=== PATIENT | female | born 1945 | race Caucasian/White ===

== ENCOUNTER 2017-10-17 18:38 | Inpatient (IN) | payer OTHER ==
[~2017-10-17] VITALS: Ht 157.5 cm; Wt 87.1 kg
--- NOTE | ~2017-10-17 | 2DMMODE ---
[facility] [address] [place] [address] 2 D/M-MODE ECHOCARDIOGRAM Name: PITER PECAE Room #: 418-P [facility] IN .R.#: [id number] Admission: 10/17/17 Attend Phys: Kraig Jones MD Discharge: Date of : 41 Date of Service: 10/18/17 1101 Report #: [id number] THIS REPORT FOR: //name// APPROVED REPORT Study performed: 10/18/2017 09:48:37 EXAM: Comprehensive 2D, Doppler, and color-flow Echocardiogram Patient Location: Echo lab Room #: [facility] Status: routine BSA: 1.88 HR: 83 bpm BP: 135/64 mmHg Other Information Study Quality: Fair Indications COPD Diabetes Murmur Dyspnea 2D Dimensions RVDd: 34.72 mm LVEF(%): 54.29 (>50%) IVSd: 10.72 (7-11mm) LVOT Diam: 20.26 (18-24mm) LVDd: 45.72 mm PWd: 11.43 (7-11mm) Ascending Ao: 30.05 (22-36mm) LVDs: 32.92 (25-40mm) Aortic Root: 30.06 mm IVC: 21.00 mm Calhoun's LVEF: 54.29 % Volumes Left Atrial Volume (Systole) Single Plane 4CH: 105.44 mL Single Plane 2CH: 96.11 mL Aortic Valve AoV Peak Gurinder.: 2.78 m/s AO Peak Gr.: 30.88 mmHg LVOT Max P.63 mmHg AO Mean Gr.: 16.58 mmHg LVOT Mean P.37 mmHg AO V2 Mean: 1.90 m/s LVOT Max V: 1.29 m/s AO V2 VTI: 65.24 cm LVOT Mean V: 0.98 m/s JOSE A (VTI): 1.64 cm2 LVOT V1 VTI: 33.14 cm JOSE A Vmax: 1.49 cm2 [facility] [place] [address] 2 D/M-MODE ECHOCARDIOGRAM Name: PITER PEACE Room #: 418-P [facility] IN ..#: [id number] Admission: 10/17/17 Attend Phys: Kraig Jones MD Discharge: Date of : 41 Date of Service: 10/18/17 1101 Report #: [id number] SV (LVOT): 106.81 mL Mitral Valve MV Peak Gr.: 20.50 mmHg MV Mean Gr.: 9.84 mmHg E/A Ratio: 0.9 MV Decel. Time: 302.78 ms MV E Max Gurinder.: 1.80 m/s MV A Gurinder.: 2.08 m/s MV Max Gurinder.: 2.26 m/s MV Mean Gurinder.: 1.52 m/s MV VTI: 596.20 mm MVA VTI: 179.15 mm2 MV PHT: 87.81 ms MVA (PHT): 2.50 cm2 IVRT: 92.27 ms Pulmonary Valve PV Peak Gurinder.: 1.25 m/s PV Peak Gr.: 6.25 mmHg Pulmonary Vein P Vein S: 0.70 m/s P Vein A: 0.35 m/s P Vein D: 0.42 m/s P Vein A Dur.: 115.3 msec P Vein S/D Ratio: 1.67 Tricuspid Valve TR Peak Gurinder.: 3.21 m/s TR Peak Gr.: 41.12 mmHg PA Pressure: 51.00 mmHg Left Ventricle The left ventricle is normal size. There is normal LV segmental wall motion. There is normal left ventricular wall thickness. The left ventricular systolic function is normal. The left ventricular ejection fraction is within the normal range. LVEF is 50-55%. This study is not technically sufficient to allow evaluation of the LV diastolic function. Right Ventricle The right ventricle is normal size. The right ventricular systolic function is normal. Atria Left atrium is dilated. The right atrium size is normal. Aortic Valve Aortic valve is calcified. Trace aortic regurgitation. Calculated [facility] [address] [place] [address] 2 D/M-MODE ECHOCARDIOGRAM Name: PITER PEACE Room #: 418-P [facility] IN M.R.#: [id number] Admission: 10/17/17 Attend Phys: Kraig Jones MD Discharge: Date of : 41 Date of Service: 10/18/17 1101 Report #: [id number] aortic valve area is 1.5 cm2 with maximum pressure gradient of 31 mmHg and mean pressure gradient of 17 mmHg. Mitral Valve Moderately heavy mitral annular calcification Trace to mild mitral regurgitation. Moderate mitral stenosis (Peak gradient 20mm, mean gradient 10mmHg) Tricuspid Valve The tricuspid valve is normal in structure. There is trace to mild tricuspid regurgitation. Estimated PAP 50 mmHg. There is moderate pulmonary hypertension. Pulmonic Valve The pulmonary valve is normal in structure. There is no pulmonic valvular regurgitation. Great Vessels The aortic root is normal in size. IVC is dilated and collapses >50% with inspiration. Pericardium There is no pericardial effusion. <Conclusion> The left ventricular systolic function is normal. There is normal LV segmental wall motion. LVEF 50-55%. Left atrium is dilated. Aortic valve is calcified, mildly stenotic and insufficient. Calculated aortic valve area is 1.5 cm2 with maximum pressure gradient of 31 mmHg and mean pressure gradient of 17 mmHg. Moderately heavy mitral annular calcification. Trace to mild mitral regurgitation. Moderate mitral stenosis (Peak gradient 20mm, mean gradient 10mmHg) There is trace to mild tricuspid regurgitation. Estimated pulmonary artery pressure of 50 mmHg. There is no pericardial effusion. <ELECTRONICALLY SIGNED> By: Galen Trujillo MD, FACC 10/18/171100 00 00 Galen Trujillo MD, FACC /INF
--- NOTE | ~2017-10-17 | EKG ---
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 10/18/17 0802 [id number] Galen Trujillo MD, [facility] /EPI
[~2017-10-17 18:38] MED LIST: AMBEREN PO; ASPIR 8181 MG PO; ATENOLOL 50MG T50 MG PO; CALCIUM 500 +1 EAC6 PO; COLACE100 MG PO; DESYREL50 MG; FISH OIL 1,0001 EAC5 PO; FLEXERIL PO; FLUOCINONI0.05 %/30 TOP; GLUCOPHAGE500 MG; HYDROCODON-ACE1 EAC8 PO; HYDROXYZINE HCL50 MG PO; LIPITOR40 MG PO; LISINOPRIL5 MG PO; MECLIZINE 25 MG25 M1 PO; NITROGLYCERIN1 EAC1 TD; NORCO 5-325 TA1 EACH PO; NORVASC 5 MG TAB5 MG PO; OMEPRAZOLE40 MG PO; PAXIL10 MG PO; PERCOCET 5-3251 EACH PO; PHOSLO667 MG PO; PLAVIX 75 MG TA75 MG PO; TRIAMTERENE-HC1 EAC1 PO; VICODIN 5-5001 EACH PO; VITAMIN D1000 UNI1 PO; ZOFRAN4 MG PO
[2017-10-17 18:47] VITALS: BP 145/66
[2017-10-17 19:13] LABS: HEMATOCRIT 31.7 % (37.0-47.0); HEMOGLOBIN 10.3 gm/dL (12.0-15.0); MCH 31.1 pg (26.0-34.0); MCHC 32.6 g/dL (28.0-37.0); MCV 95.5 fL (80.0-100.0); PLATELET COUNT 211 thou/uL (150-400); RBC 3.32 mil/uL (4.20-5.00); RDW 17.9 % (10.5-14.5); WBC 8.9 thou/uL (4.0-11.0)
[2017-10-17 19:25] LABS: ANION GAP 10 mmol/L (7-16); BUN 25 mg/dL (7-18); CALCIUM 9.1 mg/dL (8.5-10.1); CHLORIDE 103 mmol/L (98-107); CO2 26 mmol/L (21-32); CREATININE 1.3 mg/dL (0.6-1.0); GLUCOSE 141 mg/dL (74-106); POTASSIUM 3.6 mmol/L (3.5-5.1); SODIUM 139 mmol/L (136-145)
[2017-10-17 19:33] LABS: ALBUMIN 3.5 g/dL (3.4-5.0); MAGNESIUM 1.6 mg/dL (1.8-2.4); SGOT 26 U/L (15-37); SGPT 21 U/L (30-65); TOTAL BILIRUBIN 0.4 mg/dL (<0.1-1.0); TOTAL PROTEIN 8.2 g/dL (6.4-8.2); TROPONIN-I < 0.04 ng/mL (<0.06)
[2017-10-17 19:36] LABS: ABSOLUTE NEUTROPHILS 7.3 thou/uL (1.4-8.2)
[2017-10-17 19:36] LABS: URINE BILIRUBIN NEGATIVE (Negative); URINE BLOOD TRACE (Negative); URINE CLARITY CLEAR; URINE COLOR YELLOW; URINE GLUCOSE-RANDOM* NEGATIVE (Negative); URINE KETONES NEGATIVE (Negative); URINE LEUKOCYTES-REFLEX NEGATIVE (Negative); URINE PROTEIN (DIPSTICK) 1+ (Negative)
[2017-10-17 19:37] LABS: ANISOCYTOSIS 1+; OVALOCYTES OCCASIONAL
[2017-10-17 19:38] LABS: URINE NITRITE-REFLEX POSITIVE (Negative)
[2017-10-17 19:46] LABS: BACTERIA-REFLEX >30 Many /HPF (None Seen); CASTS None Seen /LPF (None Seen); CRYSTALS None Seen /LPF (None Seen); SQUAMOUS 4-10 Moderate /LPF (0-3); URINE RBC 3-10 Few /HPF (0-2); URINE WBC-REFLEX 0-5 Rare /HPF (0-5)
[2017-10-17] MEDS ORDERED: AMARYL2 M1 PO (19:48)
[2017-10-17] MEDS ORDERED: SODIUM BICARBO650 M3 PO (19:50)
[2017-10-17 20:34] VITALS: BP 144/63
[2017-10-17 22:00] VITALS: BP 130/55
[2017-10-18 04:30] VITALS: BP 135/64
[2017-10-18 07:12] VITALS: BP 129/54
[2017-10-18 17:38] VITALS: BP 118/63
[2017-10-18 19:55] VITALS: BP 109/78
[2017-10-19 08:00] VITALS: BP 135/47
[2017-10-19 20:00] VITALS: BP 114/48
[2017-10-20 07:40] VITALS: BP 135/70
[2017-10-20 08:20] LABS: HEMATOCRIT 34.2 % (37.0-47.0); HEMOGLOBIN 10.8 gm/dL (12.0-15.0); MCH 30.4 pg (26.0-34.0); MCHC 31.5 g/dL (28.0-37.0); MCV 96.3 fL (80.0-100.0); RBC 3.55 mil/uL (4.20-5.00); RDW 18.3 % (10.5-14.5); WBC 16.2 thou/uL (4.0-11.0)
[2017-10-20 08:28] LABS: CALCIUM 8.7 mg/dL (8.5-10.1); CREATININE 1.8 mg/dL (0.6-1.0); POTASSIUM 3.7 mmol/L (3.5-5.1)
[2017-10-20 20:40] VITALS: BP 115/50
[2017-10-21 07:47] VITALS: BP 115/49; BP 156/69
[2017-10-21 07:54] LABS: HEMATOCRIT 32.7 % (37.0-47.0); HEMOGLOBIN 10.4 gm/dL (12.0-15.0); MCH 30.8 pg (26.0-34.0); MCHC 31.9 g/dL (28.0-37.0); MCV 96.6 fL (80.0-100.0); RBC 3.38 mil/uL (4.20-5.00); RDW 18.3 % (10.5-14.5); WBC 12.9 thou/uL (4.0-11.0)
[2017-10-21 08:04] LABS: CALCIUM 8.8 mg/dL (8.5-10.1); CREATININE 1.6 mg/dL (0.6-1.0); POTASSIUM 3.8 mmol/L (3.5-5.1)
[2017-10-21 19:41] VITALS: BP 122/73
[2017-10-21 23:10] LABS: ADENOVIRUS Negative (Negative); INFLUENZA A Negative (Negative); INFLUENZA B Negative (Negative); METAPNEUMOVIRUS Positive (Negative); PARAINFLUENZA 1 Negative (Negative); PARAINFLUENZA 2 Negative (Negative); PARAINFLUENZA 3 Negative (Negative); RHINOVIRUS Negative (Negative); RSV A Negative (Negative); RSV B Negative (Negative)
[2017-10-22 07:15] VITALS: BP 163/92
[2017-10-22 07:42] LABS: ABSOLUTE NEUTROPHILS 10.5 thou/uL (1.4-8.2); BASOPHILS 0.2 % (0.0-2.0); HEMATOCRIT 33.4 % (37.0-47.0); HEMOGLOBIN 10.5 gm/dL (12.0-15.0); LYMPHOCYTES 7.8 % (24.0-44.0); MCH 30.3 pg (26.0-34.0); MCHC 31.5 g/dL (28.0-37.0); MCV 95.9 fL (80.0-100.0); MONOCYTES 8.6 % (1.0-8.0); PLATELET COUNT 237 thou/uL (150-400); POLYS 83.4 % (36.0-66.0); RBC 3.49 mil/uL (4.20-5.00); RDW 18.1 % (10.5-14.5); WBC 12.6 thou/uL (4.0-11.0)
[2017-10-22 07:50] LABS: CALCIUM 8.6 mg/dL (8.5-10.1); CREATININE 1.4 mg/dL (0.6-1.0); POTASSIUM 4.1 mmol/L (3.5-5.1)
[2017-10-22 19:38] VITALS: BP 126/49
[2017-10-23 07:34] VITALS: BP 105/59
[2017-10-23 09:42] VITALS: BP 150/59
[2017-10-23] MEDS ORDERED: PREDNISONE 10 M10 MG PO (15:01)
[2017-10-23] MEDS ORDERED: AMARYL2 M1 PO (15:01)
[2017-10-23] MEDS ORDERED: NITROGLYCERIN1 EAC1 TD (15:01)
[2017-10-23] MEDS ORDERED: AUGMENTIN 875-1 EACH PO (15:01)
[2017-10-23] MEDS ORDERED: MUCINEX600 MG PO (15:01)
[2017-10-23] MEDS ORDERED: VENTOLIN HFA 1818 GM INH (15:01)
== END 2017-10-23 18:31 | disposition home health service (06) | DRG 177 ==
LOC: ER 18:38 → 4E 19:48 → EROBS 19:48 → 4E 20:54 → SICU 10-18 18:59
PROVIDERS: Emergency Medicine; Family Medicine; Hospitalist; Nurse Practitioner Acute Care
DX: J69.0 Pneumonitis due to inhalation of food and vomit (principal); J96.21 Acute and chronic respiratory failure with hypoxia; J44.1 Chronic obstructive pulmonary disease with (acute) exacerbation; N39.0 Urinary tract infection, site not specified; J44.0 Chronic obstructive pulmonary disease with (acute) lower respiratory infection; N18.3 Chronic kidney disease, stage 3 (moderate); E11.22 Type 2 diabetes mellitus with diabetic chronic kidney disease; K21.9 Gastro-esophageal reflux disease without esophagitis; I25.10 Atherosclerotic heart disease of native coronary artery without angina pectoris; D64.9 Anemia, unspecified; Z96.611 Presence of right artificial shoulder joint; B96.20 Unspecified Escherichia coli [E. coli] as the cause of diseases classified elsewhere; E83.42 Hypomagnesemia; J20.9 Acute bronchitis, unspecified; Z96.653 Presence of artificial knee joint, bilateral; Z85.3 Personal history of malignant neoplasm of breast; Z87.11 Personal history of peptic ulcer disease; Z87.81 Personal history of (healed) traumatic fracture; Z98.1 Arthrodesis status; Z90.11 Acquired absence of right breast and nipple; Z90.49 Acquired absence of other specified parts of digestive tract; Z90.710 Acquired absence of both cervix and uterus; Z79.02 Long term (current) use of antithrombotics/antiplatelets; Z79.82 Long term (current) use of aspirin; Z79.899 Other long term (current) drug therapy; Z88.5 Allergy status to narcotic agent; Z88.8 Allergy status to other drugs, medicaments and biological substances; Z88.6 Allergy status to analgesic agent; Z88.1 Allergy status to other antibiotic agents; Z91.040 Latex allergy status; Z82.49 Family history of ischemic heart disease and other diseases of the circulatory system
CPT/HCPCS: 10084; 15000

== ENCOUNTER 2019-07-23 17:27 | Emergency (ER) | payer OTHER ==
[~2019-07-23] VITALS: Ht 157.5 cm; Wt 81.2 kg
[~2019-07-23 17:27] MED LIST changes: +AMARYL2 M1 PO; +AUGMENTIN 875-1 EACH PO; +MUCINEX600 MG PO; +PREDNISONE 10 M10 MG PO; +SODIUM BICARBO650 M3 PO; +VENTOLIN HFA 1818 GM INH
[2019-07-23] MEDS ORDERED: NORCO 5-325 TA1 EAC1 PO (20:21)
[2019-07-23 20:51] VITALS: BP 147/38
== END 2019-07-23 20:52 | disposition home or self-care (01) ==
LOC: ER 17:27
DX: M25.562 Pain in left knee (principal); Z88.5 Allergy status to narcotic agent; Z88.8 Allergy status to other drugs, medicaments and biological substances; Z88.6 Allergy status to analgesic agent; Z88.1 Allergy status to other antibiotic agents; Z91.040 Latex allergy status; Z96.653 Presence of artificial knee joint, bilateral; Z90.710 Acquired absence of both cervix and uterus

== ENCOUNTER 2020-01-23 07:09 | Emergency (ER) | payer OTHER ==
[~2020-01-23] VITALS: Ht 157.5 cm; Wt 81.2 kg
[~2020-01-23 07:09] MED LIST changes: +NORCO 5-325 TA1 EAC1 PO
[2020-01-23 07:33] LABS: HEMATOCRIT 35.7 % (37.0-47.0); HEMOGLOBIN 11.6 gm/dL (12.0-15.0); MCH 31.9 pg (26.0-34.0); MCHC 32.5 g/dL (28.0-37.0); MCV 98.2 fL (80.0-100.0); PLATELET COUNT 190 thou/uL (150-400); RBC 3.63 mil/uL (4.20-5.00); RDW 14.4 % (10.5-14.5); WBC 17.1 thou/uL (4.0-11.0)
[2020-01-23 07:39] LABS: CALCIUM 9.4 mg/dL (8.5-10.1); CREATININE 1.4 mg/dL (0.6-1.0)
[2020-01-23 08:44] LABS: ABSOLUTE NEUTROPHILS 15.2 thou/uL (1.4-8.2); ANISOCYTOSIS 1+
[2020-01-23 08:50] LABS: URINE BILIRUBIN NEGATIVE (Negative); URINE BLOOD 1+ (Negative); URINE COLOR YELLOW; URINE GLUCOSE-RANDOM* NEGATIVE (Negative); URINE KETONES NEGATIVE (Negative); URINE LEUKOCYTES-REFLEX NEGATIVE (Negative); URINE NITRITE-REFLEX NEGATIVE (Negative); URINE PROTEIN (DIPSTICK) 1+ (Negative); URINE SPECIFIC GRAVITY >= 1.030 (1.005-1.035); URINE UROBILINOGEN 0.2 E.U./dl (0.2-1.0)
[2020-01-23 08:52] LABS: URINE CLARITY SL HAZY
[2020-01-23 08:58] LABS: CASTS None Seen /LPF (None Seen); SQUAMOUS 0-3 Few /LPF (0-3)
[2020-01-23 08:59] LABS: AMORPHOUS URATES Few /LPF (None Seen); BACTERIA-REFLEX 1-9 Few /HPF (None Seen); URINE RBC 0-2 Rare /HPF (0-2); URINE WBC-REFLEX 0-5 Rare /HPF (0-5)
[2020-01-23] MEDS ORDERED: NORCO 5-325 TA1 EAC2 PO (09:33)
[2020-01-23 10:45] VITALS: BP 144/49
== END 2020-01-23 10:45 | disposition home or self-care (01) ==
LOC: ER 07:09
PROVIDERS: Emergency Medicine
DX: M54.5 Low back pain (principal); E11.9 Type 2 diabetes mellitus without complications; N18.3 Chronic kidney disease, stage 3 (moderate); K21.9 Gastro-esophageal reflux disease without esophagitis; I25.10 Atherosclerotic heart disease of native coronary artery without angina pectoris; Z90.710 Acquired absence of both cervix and uterus; Z90.89 Acquired absence of other organs; Z79.899 Other long term (current) drug therapy; Z88.6 Allergy status to analgesic agent; Z79.01 Long term (current) use of anticoagulants; Z88.5 Allergy status to narcotic agent; Z88.1 Allergy status to other antibiotic agents; Z88.8 Allergy status to other drugs, medicaments and biological substances; Z91.040 Latex allergy status; Z91.048 Other nonmedicinal substance allergy status

== ENCOUNTER 2020-01-24 09:31 | Inpatient (IN) | payer OTHER ==
[~2020-01-24] VITALS: Ht 152.4 cm; Wt 83.5 kg
--- NOTE | ~2020-01-24 | O ---
[facility] [place] [address] OPERATIVE REPORT Name: PITER PEACE Room #: 243-P ADM IN M.R.#: [id number] Admission: 01/24/20 Attend Phys: Chris Thompson MD Discharge: Date of : 43 Report #: [id number] THIS REPORT FOR: cc: FAM - Family physician unknown FAM - Family physician unknown Jermaine Coyne MD ~ CC: [facility] unknown Chris Thompson DATE OF SERVICE: 01/26/2020 PREOPERATIVE DIAGNOSIS: Epidural abscess L3 through L5. POSTOPERATIVE DIAGNOSIS: Epidural abscess L3 through L5. OPERATION PERFORMED: Partial L3-L4 laminectomy with evacuation of epidural abscess and sending of cultures along with placement of drain. DARRIN Darling assisted with the surgery. She assisted with exposure, the evacuation of the abscess as well as the closure. OPERATIVE INDICATIONS: The patient is a 74-year-old woman who was unconscious and intubated, hypotensive, on Levophed when I was contacted. She had presented to the Emergency Room the day before her admission with back pain and then the following day, came in obtunded and ended up being admitted. She had had MRI scans of the cervical, thoracic and lumbar spine. On the lumbar MRI, there was an epidural abscess. There was a fluid collection which I felt was consistent with an epidural abscess basically behind the body of L4. I felt that on her initial admission including the fact that she was on Plavix, hypotensive, etc., that she was not stable enough to go to surgery. Two days later, which is now Saturday, I felt that at this point after being cleared by the fire truck driver, I could take her surgery and safely evacuate the abscess. I did discuss this with the patient's daughter who understood very well my concerns, the rationale and the procedure. DESCRIPTION OF PROCEDURE: Following general endotracheal anesthesia, the patient was positioned prone on the Jah table. Lumbar region prepped and draped in standard fashion. LY hose and AV impulse boots were applied for DVT prophylaxis. Microscope was draped. Fluoroscopy was draped and brought into the field. She was already on antibiotics. I made a midline incision over the L4 vertebral body extending from mid L3 to upper L5, dissected down through skin and subcutaneous tissue, reflected the paraspinal muscles. As I reflected into the right side, there was a spontaneous egress of pus, which appeared to emanate from the facet. I brought in the high speed air drill and microscope. I drilled down a generous laminectomy at L4, moved superiorly ____ L3, as I was lifting the bone away from the laminectomy, there was significant pus which kept [facility] [address] [place] [address] OPERATIVE REPORT Name: KOBIPITER Room #: 243-P ADM IN M.R.#: [id number] Admission: 01/24/20 Attend Phys: Chris Thompson MD Discharge: Date of : 43 Report #: [id number]. I did send cultures again and worked diligently and fully decompressed the region. I reached around the sides of the dura. There were some fluids, but the majority of the fluid appeared to be posteriorly located. At this point, I irrigated with antibiotic solution and I also had excellent decompression. I worked diligently with bone wax and bipolar cautery to obtain excellent hemostasis. I placed a drain and then was brought out through a separate stab incision, laying just at the posterior edge of the laminectomy. The muscle was closed in a separate layer, fascia again and separate layer of subcutaneous tissue separately and the skin with skin mateo. I felt the surgery went very well. By: 1625 1739 Jermaine Coyne MD /nt
--- NOTE | ~2020-01-24 | EMS ---
[facility] [address] [place] [address] EMS Patient Care Report Name: PITER PEACE Room #: PRE ER M.R.#: [id number] Admission: Attend Phys: Discharge: Date of : 43 Report #: [id number] THIS REPORT FOR: //name// Report Transmitted: 01/24/2020 09:03 EMS Care Summary [place], [place]/[facility] Incident [id number] @ 01/24/2020 08:48 Incident [id number] [place] [address] Patient PITER PEAEC Female, 74 Years 1945 Patient Address [address] [place] [address] Patient Allergies No known allergies, Patient Medications Hydrocodone, Chief Complaint WEAKNESS/ LETHARGY Disposition Transported No Lights/[place] Dispatch Reason Sick Person Transported To [facility] Narrative UPON ARRIVAL PT SITTING IN RECLINER CONSCIOUS AND ALERT. PT'S DAUGHTER HAD CALLED 911 FOR PT WHEN SHE WOULD NOT ANSWER THE PHONE TO CHECK ON HER. PT CAN ANSWER YES AND NO BUT CAN NOT ANSWER QUESTIONS BEYOND THAT. DAUGHTER STATES PT NORMALLY ABLE TO HAVE A CONVERSATION AND GET AROUND APT ON HER OWN. PT UNABLE TO GET OUT OF CHAIR EVEN WITH ASSISTANCE. PT WAS SEEN IN ER YESTERDAY FOR BACK PAIN AND GIVEN PAIN MEDICATION. PT ALSO HAS A STRONG URINE ODOR. PT LIFTED TO [facility] [address] [place] [address] EMS Patient Care Report Name: PITER PEACE Room #: PRE [facility].#: [id number] Admission: Attend Phys: Discharge: Date of : 43 Report #: [id number] COT AND TRANSPORTED TO [facility]. Initial Vitals @09:14P: 76,R: 24,BP: 121/60,Pain: 4/10,GCS: 14,Glucose: 199,SpO2: 95,Revised Trauma: 12, @09:26P: 68,R: 24,BP: 127/73,GCS: 14,SpO2: 96,Revised Trauma: 12, Assessments @08:56MENTAL:Confused,SKIN:HEENT:Head/Face: No Abnormalities,LUNG SOUNDS:General: No Abnormalities,ABDOMEN:General: No Abnormalities,PELVIS//GI:EXTREMITIES:Left Arm: No Abnormalities,Right Arm: No Abnormalities,Left Leg: No Abnormalities,Right Leg: No Abnormalities,PULSE:NEURO:No Abnormalities, Impression Altered Mental Status Procedures @08:56ALS AssessmentResponse: UnchangedSucceeded@09:103-Lead ECGResponse: UnchangedSucceeded Timeline 08:47,Call Received 08:47,Dispatch Notified 08:48,Dispatched 08:50,En Route 08:52,On Scene 08:55,At Patient 08:56,ALS Assessment,Response: UnchangedSucceeded, 09:10,3-Lead ECG,Response: UnchangedSucceeded, 09:14,BP: 121/60 M,PULSE: 76,RR: 24 R,SPO2: 95 Ox,ETCO2: ,B,PAIN: 4,GCS: 14, 09:16,Depart Scene 09:26,BP: 127/73 M,PULSE: 68,RR: 24 R,SPO2: 96 Ox,ETCO2: ,BG: ,PAIN: ,GCS: 14, 09:27,At Destination 09:46,Call Closed Disclaimer v1.1 Copyright 2020 [employer] This EMS Care Summary contains data elements from the applicable legal record (which may be displayed differently). It is designed to provide pertinent information for the following purposes: continuity of care, clinical quality, and state data reporting. The complete legal record is available to ED staff and administrators of the receiving hospital in [employer]'s Patient Tracker. All data is provided "as is."
--- NOTE | ~2020-01-24 | HC ---
[facility] [place] [address] CONSULTATION Name: PITER PEACE Room #: 238-P ADM IN M.R.#: [id number] Admission: 01/24/20 Attend Phys: Chris Thompson MD Discharge: Date of : 43 Report #: [id number] THIS REPORT FOR: cc: FAM - Family physician unknown FAM - Family physician unknown Jermaine Coyne MD ~ CC: [facility] unknown Chris Thompson DATE OF SERVICE: 01/24/2020 TIME: 9:30 p.m. REASON FOR CONSULTATION: Epidural abscess. HISTORY OF PRESENT ILLNESS: The patient is a 74-year-old woman who actually presented to the Emergency Room yesterday with complaints of back pain. She was evaluated and no definite etiology was found and she was discharged. She returned today confused with again severe back pain and she was febrile. She was able to say yes or no for simple questions, but was not oriented to the previous day when she was able to give a history. She did describe problems with chronic back pain for which she takes Alkol. She normally uses a walker to ambulate. PAST MEDICAL HISTORY: Includes left knee replacement, right knee replacement, right breast mastectomy for carcinoma, GERD, peptic ulcer disease, coronary artery disease, right shoulder replacement, left femur fracture requiring surgery, appendectomy, hysterectomy, tonsillectomy, diabetes type 2, history of TIA, right carpal tunnel release and cervical fusion. MEDICATIONS: Available on the chart and are noncontributory except for the use of Plavix 75 mg p.o. every day. ALLERGIES: She has a long list of allergies which are also again on the chart and are available. SOCIAL HISTORY: Reports no alcohol use, no tobacco use. PHYSICAL EXAMINATION: GENERAL: At this time, she is supine in bed. The head of bed is elevated about 20 degrees. She is intubated on propofol. HEENT: Her pupils react sluggishly. NEUROLOGIC: Gag reflex is intact. She did pick some chewing motions during the examination. There was no response in upper and lower extremities to painful stimuli. [facility] [address] [place] [address] CONSULTATION Name: KOBIPITER Roberts Room #: 238-P ADM IN M.R.#: [id number] Admission: 01/24/20 Attend Phys: Chris Thompson MD Discharge: Date of : 43 Report #: [id number] IMPRESSION AND PLAN: She was extensively evaluated in the Emergency Room and as well MRI scans were performed as of the cervical, thoracic and lumbar region. She does have a disk herniation at T1-T2, which is associated with mild stenosis at that level. However, the principal problem is at L3, L4, L5 where there is evidence of an epidural abscess with anterior and posterior components narrowing the spinal canal behind the body of L4. It is about 4 mm. Her Emergency Room and hospital course was noteworthy for hypotension and cardiac dysrhythmia while in the MRI scanner for which she was placed on Levophed and she is currently on Levophed. Currently, her temperature is 102.4. Levophed was recently increased slightly. Her blood pressure is in the mid 80s systolic and heart rate 71. I have a number of thoughts about her ideally. She could be taken to surgery and having the abscess evacuated; however, being on Plavix complicates that significantly and additionally her current condition would preclude operative intervention. She is on antibiotics. Consults were called. So at this point I am going to follow her. I do understand that the blood culture result has come back as gram-positive cocci. I appreciate you asking me to see her in consultation. By: 35 45 eJrmaine Coyne MD /nt
[~2020-01-24 09:31] MED LIST changes: +NORCO 5-325 TA1 EAC2 PO
[2020-01-24 09:32] VITALS: BP 129/51
[2020-01-24 11:23] LABS: BE(vivo) -2.9 mmol/L (-2 to +3); HCO3 20.7 mmol/L (22.0-26.0); PCO2 31.8 mmHg (35.0-45.0); PO2 121.1 mmHg (80.0-100.0); pH 7.431 (7.360-7.450); sO2 98.5 % (92.0-98.0)
[2020-01-24 11:34] LABS: RBC 3.24 mil/uL (4.20-5.00); RDW 14.6 % (10.5-14.5)
[2020-01-24 11:37] LABS: HEMATOCRIT 31.9 % (37.0-47.0); HEMOGLOBIN 10.4 gm/dL (12.0-15.0); MCH 32.1 pg (26.0-34.0); MCHC 32.6 g/dL (28.0-37.0); MCV 98.4 fL (80.0-100.0); PLATELET COUNT 155 thou/uL (150-400); WBC 19.4 thou/uL (4.0-11.0)
--- NOTE | 2020-01-24 11:40 | NUR ---
ETOMIDATE IN @1142 TO RIGHT A/C SUCC IN @ 1142 RT AT BEDSIDE ASSISTING AIRWAY WITH BVM ET TUBE PLACED BY DR. CLEMENTS- SIZE 7.0; 22 AT THE LIP; +COLOR CHANGE
[2020-01-24 11:46] LABS: URINE BILIRUBIN NEGATIVE (Negative); URINE BLOOD 3+ (Negative); URINE CLARITY CLOUDY; URINE COLOR YELLOW; URINE GLUCOSE-RANDOM* NEGATIVE (Negative); URINE KETONES NEGATIVE (Negative); URINE LEUKOCYTES-REFLEX NEGATIVE (Negative); URINE NITRITE-REFLEX NEGATIVE (Negative); URINE PROTEIN (DIPSTICK) 2+ (Negative); URINE SPECIFIC GRAVITY 1.025 (1.005-1.035); URINE UROBILINOGEN 0.2 E.U./dl (0.2-1.0)
[2020-01-24 12:47] LABS: CASTS None Seen /LPF (None Seen); SQUAMOUS 0-3 Few /LPF (0-3); URINE WBC-REFLEX 0-5 Rare /HPF (0-5)
[2020-01-24 12:49] LABS: AMORPHOUS URATES Moderate /LPF (None Seen); BACTERIA-REFLEX 1-9 Few /HPF (None Seen); URINE RBC 0-2 Rare /HPF (0-2)
[2020-01-24 13:26] LABS: CALCIUM 7.6 mg/dL (8.5-10.1)
[2020-01-24 13:27] LABS: POTASSIUM 4.8 mmol/L (3.5-5.1)
[2020-01-24 13:31] LABS: ALBUMIN 2.5 g/dL (3.4-5.0); DIRECT BILIRUBIN 0.2 mg/dL (<0.1-0.2); TOTAL BILIRUBIN 0.9 mg/dL (0.2-1.0); TOTAL PROTEIN 6.4 g/dL (6.4-8.2)
[2020-01-24 14:10] LABS: BE(vivo) -6.2 mmol/L (-2 to +3); HCO3 17.3 mmol/L (22.0-26.0); PCO2 28.9 mmHg (35.0-45.0); PO2 145.1 mmHg (80.0-100.0); pH 7.396 (7.360-7.450); sO2 98.9 % (92.0-98.0)
[2020-01-24 14:14] LABS: ABSOLUTE NEUTROPHILS 16.9 thou/uL (1.4-8.2)
[2020-01-24 17:51] VITALS: BP 84/39
[2020-01-24 19:48] VITALS: BP 128/72
[2020-01-24 23:06] LABS: CALCIUM 7.2 mg/dL (8.5-10.1); CREATININE 2.7 mg/dL (0.6-1.0)
[2020-01-24 23:07] LABS: APTT 40.8 Seconds (24.5-32.8); INR 1.3; PROTIME 13.5 Seconds (9.3-11.4)
[2020-01-24 23:14] LABS: POTASSIUM 3.7 mmol/L (3.5-5.1)
[2020-01-25] VITALS (82 sets, daily range): BP systolic 72–163; BP diastolic 30–96
--- NOTE | 2020-01-25 03:18 | NUR ---
ASSUMED CARE OF PATIENT AT FROM ER. PATIENT ON LEVO, PROPOFOL, FLUIDS. MINIMALLY RESPONSIVE. DR GARCES TO BEDSIDE. DISCUSSED PATIENT STATUS. REVIEWED ORDERS. PATIENT REMAINS INTUBATED AND SEDATED WITH GOAL TO KEEP MAP ABOVE 65. NOT PROGRESSING TOWARDS POC GOALS AT THIS TIME.
[2020-01-25 04:50] LABS: BE(vivo) -10.3 mmol/L (-2 to +3); HCO3 15.6 mmol/L (22.0-26.0); PCO2 34.7 mmHg (35.0-45.0); PO2 197.5 mmHg (80.0-100.0); sO2 99.2 % (92.0-98.0)
[2020-01-25 04:51] LABS: pH 7.271 (7.360-7.450)
[2020-01-25 06:15] LABS: CALCIUM 7.1 mg/dL (8.5-10.1); POTASSIUM 4.2 mmol/L (3.5-5.1)
--- NOTE | 2020-01-25 09:08 | EKG ---
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 : 1945 Requested By: Nolan Riddle Order Number: [id number] MD: Galen Trujillo Measurements Intervals [place] Rate: 68 P: 49 NM: 137 QRS: 65 QRSD: 104 T: 56 QT: 427 QTc: 455 Interpretive Statements Sinus rhythm Abnormal R-wave progression, early transition Minimal ST depression, anterolateral leads Compared to ECG 10/17/2017 18:49:32 ST (T wave) deviation now present Electronically Signed On 01-25-2020 9:07:52 CDT by Galen Trujillo [email or web address] <ELECTRONICALLY SIGNED> By: Galen Trujillo MD, [facility] 01/25/20906 9 9 Galen Trujillo MD, [facility] /EPI
--- NOTE | 2020-01-25 10:25 | NUR ---
Nutrition: NPO day 1. REC initiation of Vital HP to reach 40 mL/hr goal.
--- NOTE | 2020-01-25 15:13 | NUR ---
cm tried to call pt daughter akira, , unable to leave message rt no mailbox set up. pt intubated on vent. will cont following as needed for dc needs.
--- NOTE | 2020-01-25 15:16 | NUR ---
WOUND CONSULT; ASSESSMENT WAS COMPLETED VIA PICTURE AND THE RN'S REPORT DUE TO COVID RESTRICTIONS. THE RIGHT HIP SEEMS CONSISTANT WITH THE PATIENT SCATCHING AT SOME POINT. BILATERAL BUTTOCKS HAVE PALE PINK ESCORIATIONS CONSISTANT WITH INCONTINENCE RELATED DERMATITIS. DRY, FRAGIALLY HEALED. RECOMMENDATIONS; 1-BETADINE TO RIGHT HIP, DAILY/PRN 2-BARRIER CREAM TO BILATERAL BUTTOCKS BID/PRN DISCUSSED WITH RN
--- NOTE | 2020-01-25 17:54 | NUR ---
INSULIN GTT INITIATED AT 1200. WEANING LEVOPHED. DOWN TO 2 MCG. 50% FIO2. PEEP 5. DR. BROWNING AT BEDSIDE IN AFTERNOON. PLANNING TO HAVE PATIENT GO TO ER ON 01/25 1300 FOR REMOVAL OF ABCESS. SPOKE NE DEL CID DAUGHTER.
[2020-01-26] VITALS (85 sets, daily range): BP systolic 72–151; BP diastolic 34–80
[2020-01-26 00:20] LABS: CALCIUM 7.2 mg/dL (8.5-10.1); CREATININE 2.6 mg/dL (0.6-1.0); POTASSIUM 3.3 mmol/L (3.5-5.1)
[2020-01-26 03:07] LABS: BE(vivo) -7.1 mmol/L (-2 to +3); HCO3 18.3 mmol/L (22.0-26.0); PCO2 36.3 mmHg (35.0-45.0); PO2 131.7 mmHg (80.0-100.0); sO2 98.4 % (92.0-98.0)
[2020-01-26 06:58] LABS: HEMATOCRIT 29.3 % (37.0-47.0); HEMOGLOBIN 9.7 gm/dL (12.0-15.0); MCH 32.4 pg (26.0-34.0); MCHC 33.1 g/dL (28.0-37.0); MCV 97.8 fL (80.0-100.0); RBC 2.99 mil/uL (4.20-5.00); RDW 15.1 % (10.5-14.5); WBC 16.7 thou/uL (4.0-11.0)
--- NOTE | 2020-01-26 07:25 | NUR ---
ASSUMED CARE 1900. PT SEDATED. DOES NOT FOLLOW COMMANDS. WITHDRAWS TO PAINFUL STIMULI, PUPILS REACTIVE. NO APPARENT PAIN. PT SATS 100% ON ON 40% FIO2, PEEP OF 5, RATE 12, TV 400. NO BOWEL MOVEMENT LAST NIGHT. FAMILY TO BE EDUCATED MORE ABOUT THE RISKS OF THE PENDING PRECEDURE BEFORE CONSENT AUTHORIZATION. OTHERWISE NO EVENTS OVERNIGHT.
[2020-01-26 07:33] LABS: ALBUMIN 1.8 g/dL (3.4-5.0); CALCIUM 7.4 mg/dL (8.5-10.1); CREATININE 2.3 mg/dL (0.6-1.0); POTASSIUM 3.9 mmol/L (3.5-5.1); TOTAL BILIRUBIN 0.4 mg/dL (0.2-1.0); TOTAL PROTEIN 5.9 g/dL (6.4-8.2)
[2020-01-26 10:50] LABS: ABSOLUTE NEUTROPHILS 14.4 thou/uL (1.4-8.2); ANISOCYTOSIS SLIGHT; ATYPICAL LYMPHS 1 %; LARGE PLATELETS OCCASIONAL; METAMYELOCYTES 1 %; POIKILOCYTOSIS SLIGHT
[2020-01-26 10:51] LABS: PLATELET COUNT 100 thou/uL (150-400); PLATELET ESTIMATE SLIGHTLY DECREASED
--- NOTE | 2020-01-26 14:40 | 2DMMODE ---
[facility] [place] [address] 2 D/M-MODE ECHOCARDIOGRAM Name: PITER PEACE Room #: 238-P ADM IN M.R.#: [id number] Admission: 01/24/20 Attend Phys: Chris Thompson MD Discharge: Date of : 43 Report #: [id number] THIS REPORT FOR: cc: FAM - Family physician unknown FAM - Family physician unknown Galen Trujillo MD [facility] ~ APPROVED REPORT Study performed: 01/26/2020 12:31:24 EXAM: Comprehensive 2D, Doppler, and color-flow Echocardiogram Patient Location: ICU Room #: 238 Status: routine BSA: 1.76 HR: 60 bpm BP: 131/60 mmHg Rhythm: NSR Other Information Study Quality: Adequate/on vent Indications Endocarditis. 2D Dimensions RVDd: 45.27 mm IVSd: 13.76 (7-11mm) LVOT Diam: 19.90 (18-24mm) LVDd: 48.06 mm PWd: 9.69 (7-11mm) Ascending Ao: 38.01 (22-36mm) LVDs: 36.22 (25-40mm) Aortic Root: 32.29 mm Volumes Left Atrial Volume (Systole) Single Plane 4CH: 75.33 mL Single Plane 2CH: 129.24 mL LA ESV Index: 59.00 mL/m2 Aortic Valve AoV Peak Gurinder.: 2.05 m/s AO Peak Gr.: 16.74 mmHg LVOT Max P.73 mmHg AO Mean Gr.: 10.51 mmHg AO V2 Mean: 1.57 m/s LVOT Max V: 0.83 m/s AO V2 VTI: 49.23 cm [facility] [address] [place] [address] 2 D/M-MODE ECHOCARDIOGRAM Name: PITER PEACE Room #: 238-P [facility] IN [facility]#: [id number] Admission: 01/24/20 Attend Phys: Chris Thompson MD Discharge: Date of : 43 Report #: [id number] JOSE A Vmax: 1.26 cm2 Mitral Valve MV Decel. Time: 283.27 ms MV PHT: 82.15 ms Pulmonary Valve PV Peak Gurinder.: 0.89 m/s PV Peak Gr.: 3.17 mmHg Tricuspid Valve TR Peak Gurinder.: 3.01 m/s RAP Estimate: 10.00 mmHg TR Peak Gr.: 36.31 mmHg PA Pressure: 46.00 mmHg Left Ventricle The left ventricle is normal size. There is normal LV segmental wall motion. Mild basal septal hypertrophy is present. Left ventricular systolic function is normal. LVEF is 50-55%. This study is not technically sufficient to allow evaluation of the LV diastolic function. Right Ventricle The right ventricle is normal size. The right ventricular systolic function is normal. Atria Left atrium is severely dilated. Right atrium is at the upper limits of normal. Aortic Valve Aortic valve is moderately calcified, trileaflet. Mild aortic regurgitation. Mild to moderate aortic stenosis. JOSE A by continuity equation is 1.3cm2. Mitral Valve Heavily calcified annulus, mobile submital component suspicious for a vegetation. Moderate mitral regurgitation. Moderate mitral stenosis. Mean pressure gradient 9mmHg; Max 23mmHg. Tricuspid Valve The tricuspid valve is normal in structure. Moderate tricuspid regurgitation. Estimated PAP is 45-50mmHg. Pulmonic Valve The pulmonary valve is normal in structure. Mild to moderate pulmonic regurgitation. [facility] [place] [address] 2 D/M-MODE ECHOCARDIOGRAM Name: PITER PEACE Room #: 238-P ADM IN M.R.#: [id number] Admission: 01/24/20 Attend Phys: Chris Thompson MD Discharge: Date of : 41 Report #: [id number] Great Vessels The aortic root is normal in size. The ascending aorta is borderline dilated. IVC is dilated and collapses <50% with inspiration. Pericardium There is no pericardial effusion. Critical Notification Critical Value: Yes <Conclusion> Left ventricular systolic function is normal. There is normal LV segmental wall motion. LVEF is 50-55%. Left atrium is severely dilated. Aortic valve is moderately calcified, trileaflet. Mild aortic regurgitation. Mild to moderate aortic stenosis. JOSE A by continuity equation is 1.3cm2. Heavily calcified annulus, mobile submital component suspicious for a vegetation. Moderate mitral regurgitation. Moderate mitral stenosis. Mean pressure gradient 9mmHg; Max 23mmHg. Moderate tricuspid regurgitation. Estimated pulmonary artery pressure of 45-50mmHg. There is no pericardial effusion. <ELECTRONICALLY SIGNED> By: Galen Trujillo MD, [facility] 01/26/20 1440 39 Galen Trujillo MD, FACC /INF
--- NOTE | 2020-01-26 16:01 | NUR ---
PATIENT IN OR SINCE 1355. 1400 AND 1600 RESTRAINTS NOT DOCUMENTED DUE TO PATIENT BEING OFF OF THE UNIT.
--- NOTE | 2020-01-26 16:30 | NUR ---
PATIENT LEFT ICU POD1 AT 1400 TO OR. REPORT WAS GIVEN TO ANOTHER RN FOR CONTINUATION OF CARE UPON PATIENT RETURN. PATIENT ARRIVED BACK TO ICU AT 1630 INTO ROOM 243. SHE WAS ORIGINALLY IN ROOM 238, COVID TEST WAS NEGATIVE.
--- NOTE | 2020-01-26 16:30 | NUR ---
1630- PATIENT ARRIVED TO UNIT WITH SURGICAL STAFF. SHE WAS PLACED ON PROPOFOL BY SURGERY STAFF. SHE WAS SETTLED INTO BED. MATTY DRAIN INTACT. DRESSING WILL HAVE TO BE CHANGED. NURSE TO CONTINUE TO MONITOR PATIENT STATUS.
--- NOTE | 2020-01-26 17:20 | NUR ---
1720- PATIENT DAUGHTER LET BACK IN THE ROOM. SHE WAS UPDATED ON PATIENT STATUS AND NEED FOR LEVOPHED. NURSE EXPLAINED CLOSE MONITORING OF THE PATIENTS VITAL SIGNS AND OVER ALL STATUS. NURSE UPDATED HER ON THE PLAN OF CARE.
--- NOTE | 2020-01-26 17:30 | NUR ---
1730- SURGEON ROUNDED ON PATIENT. NURSE INFORMED HIM OF PATIENTS TACHYCARDIA AFTER ARRIVAL TO THE ICU. NURSE ALSO INFORMED PHYSICIAN OF PATIENTS DRESSING NOT BEING IN PLACE AND SO A NEW DRESSING WAS PLACED. NURSE INFORMED HIM OF PATIENTS VITAL SIGNS AND BLOOD PRESSURE, REQUIRING THE NEED FOR LEVOPHED. HE EXPRESSED HE UNDERSTOOD.
--- NOTE | 2020-01-26 18:08 | NUR ---
1800- PATIENTS DAUGHTER JUDITH TOOK PATIENTS BELONGINGS HOME. SHE TOOK HER PURSE WITH HER DRIVERS LICENSE, DEBIT CARD, SOCIAL SECURITY CARD, TWO 2 DOLLAR BILLS, KOHLS GIFT CARD, SUNGLASSES, KEYS. SHE ALSO TOOK HOME HER GOWN. WHAT WAS LEFT WAS HER TOP PART OF DENTURES, JUDITH EXPRESSED SHE DOES NOT HAVE A BOTTOM PART DENTURES.
[2020-01-27] VITALS (52 sets, daily range): BP systolic 96–150; BP diastolic 40–83
--- NOTE | 2020-01-27 01:39 | NUR ---
ASSUMED CARE AT 1900. VSS. SEDATION VACATION FROM PROPOFOL AT 10MCG. PT OPENS EYES TO STERNAL RUB BUT DOESNT FOLLOW COMMANDS; POSITIVE COUGH AND GAG NOTED. ATTEMPTED TO TITRATE PROPOFOL DOWN TO 5MCG,FOR 3.5 HOURS; INCREASED ACCESORY MUSCLE USE WITH BREATHING NOTED, SPONTANEOUS MOVEMENTS OF ARMS AND LEGS, & TACHYPNEA WITH RR 27-31. PROPOFOL TITRATED BACK UP TO 10MCG AND RR CAME DOWN TO 19 WITH DECREASED ACCESSORY MUSCLE USE. PT APPEARS STABLE, DTR CALLED AT 2226, UPDATED HER ON PT STATUS AND VITAL SIGNS. U/O BARELY OPTIMAL;20-30MLS/HR. WILL CONTINUE TO CLOSLEY MONITOR
[2020-01-27 04:26] LABS: BE(vivo) -6.8 mmol/L (-2 to +3); HCO3 17.7 mmol/L (22.0-26.0); PO2 136.8 mmHg (80.0-100.0); pH 7.361 (7.360-7.450); sO2 98.7 % (92.0-98.0)
[2020-01-27 07:00] LABS: HEMATOCRIT 30.2 % (37.0-47.0); HEMOGLOBIN 9.7 gm/dL (12.0-15.0); MCH 31.7 pg (26.0-34.0); MCHC 32.2 g/dL (28.0-37.0); MCV 98.6 fL (80.0-100.0); RBC 3.06 mil/uL (4.20-5.00); RDW 15.3 % (10.5-14.5); WBC 18.7 thou/uL (4.0-11.0)
[2020-01-27 07:05] LABS: CALCIUM 7.2 mg/dL (8.5-10.1); CREATININE 1.8 mg/dL (0.6-1.0); MAGNESIUM 1.9 mg/dL (1.8-2.4); POTASSIUM 3.8 mmol/L (3.5-5.1); TOTAL BILIRUBIN 0.3 mg/dL (0.2-1.0)
[2020-01-27 09:37] LABS: ABSOLUTE NEUTROPHILS 17.8 thou/uL (1.4-8.2)
[2020-01-27 09:39] LABS: ANISOCYTOSIS 1+
[2020-01-27 09:40] LABS: OVALOCYTES FEW; PLATELET COUNT 130 thou/uL (150-400)
--- NOTE | 2020-01-27 10:12 | NUR ---
WOUND CARE F/U; ASSESSED SACRAL/BUTTOCKS AREA, R HIP, W/ SUPPORT SERVICES TECH CHAPITO CHARLES REMAINS ON VENT, R BUTTOCKS AREA PINK BLANCHABLE, L BUTTOCK AREA DARKER RED, NON BLANCHABLE, SACRAL AREA PINK, NO OPEN AREAS, NO S/S INFECTION, SCRATCH STEWARD BILAT HIPS, R LEG, UPPER R BACK, DRY RECOMMENDATIONS; CONT BARRIER CREAM BID TO BUTTOCKS AND SACRAL AREA BID AND PRN, CONT BETADINE TO SCRATCH STEWARD, OFF LOADING, PRESSURE RELIEF SUPPORT SERVICES TECH AWARE
--- NOTE | 2020-01-27 15:01 | NUR ---
ON-GOING ASSESSMENT: CM REVIEWED CHART. PT IS POD1 LAMINECTOMY WITH REMOVAL OF SPINAL ABSESS AND DRAIN PLACEMENT. PT REMAINS SEDATED ON THE VENTILATOR. CM WILL CONTINUE TO FOLLOW TO ASSIST NEEDED.
--- NOTE | 2020-01-27 19:32 | NUR ---
Daughter, Laure at bedside most of the day. Pt maintaining adequate blood pressures and was able to wean of Levophed today. New orders of fentanyl helped with tachypnea and pain. Pts daughter updated and understands plan of care. Pt still requiring heavy sedation and therefore is not progressing towards goals.
[2020-01-28] VITALS (50 sets, daily range): BP systolic 114–150; BP diastolic 41–70
[2020-01-28 04:51] LABS: BE(vivo) -1.7 mmol/L (-2 to +3); HCO3 22.6 mmol/L (22.0-26.0); PCO2 36.3 mmHg (35.0-45.0); PO2 146.8 mmHg (80.0-100.0); pH 7.412 (7.360-7.450); sO2 98.9 % (92.0-98.0)
[2020-01-28 06:50] LABS: ABSOLUTE NEUTROPHILS 10.3 thou/uL (1.4-8.2); BASOPHILS 0.1 % (0.0-2.0); HEMATOCRIT 27.3 % (37.0-47.0); HEMOGLOBIN 8.9 gm/dL (12.0-15.0); LYMPHOCYTES 3.8 % (24.0-44.0); MCH 31.7 pg (26.0-34.0); MCHC 32.7 g/dL (28.0-37.0); MONOCYTES 6.9 % (1.0-8.0); POLYS 89.2 % (36.0-66.0); RBC 2.81 mil/uL (4.20-5.00); RDW 14.7 % (10.5-14.5); WBC 11.5 thou/uL (4.0-11.0)
[2020-01-28 06:58] LABS: ALBUMIN 2.3 g/dL (3.4-5.0); CALCIUM 7.5 mg/dL (8.5-10.1); CREATININE 1.8 mg/dL (0.6-1.0); MAGNESIUM 1.7 mg/dL (1.8-2.4); TOTAL BILIRUBIN 0.8 mg/dL (0.2-1.0)
[2020-01-28 07:04] LABS: POTASSIUM 2.9 mmol/L (3.5-5.1)
[2020-01-28 08:33] LABS: % SATURATION 19 % (20-39); IRON 29 ug/dL (50-170); TIBC 151 ug/dL (250-450)
--- NOTE | 2020-01-28 09:01 | TEE ---
[facility] [place] [address] TRANSESOPHAGEAL ECHOCARDIOGRAM Name: PITER PEACE Room #: 243-P ADM IN M.R.#: [id number] Admission: 01/24/20 Attend Phys: Chris Thompson MD Discharge: Date of : 41 Report #: [id number] THIS REPORT FOR: cc: FAM - Family physician unknown FAM - Family physician unknown Galen Trujillo MD [facility] ~ APPROVED REPORT Study performed: 01/28/2020 07:32:07 EXAM: Transesophageal Echocardiogram Patient Location: ICU Room #: Critical access hospital Status: routine BSA: 1.76 HR: 100 bpm BP: 141/51 mmHg Indications Rule out endocarditis. Procedure After obtaining informed consent, patient underwent transesophageal echo in the ICU. Type of Sedation : Conscious Sedation Sedation was administered by Chad ASPARAGUS CUTTER. Sedation was achieved intravenously with: Propofol () Transesophageal probe was inserted and advanced into esophagus without difficulty by Galen Trujillo MD. Echo enhancement indication: R/O Septal defect. Echo enhancement agent administered: Agitated Saline The KINZA was performed without complications. Throughout the procedure, the blood pressure, pulse oximetry, cardiac rhythm, and rate were monitored. The patient tolerated the procedure without adverse effects. Recovery from conscious sedation was uneventful and vital signs were stable. Left Ventricle The left ventricle is normal size. There is normal LV segmental wall motion. There is normal left ventricular wall thickness. Left ventricular systolic function is normal. LVEF 55%. [facility] [address] [place] [address] TRANSESOPHAGEAL ECHOCARDIOGRAM Name: PITER PEACE Room #: 243-P ADM IN M.R.#: [id number] Admission: 01/24/20 Attend Phys: Chris Thompson MD Discharge: Date of : 41 Report #: [id number] Right Ventricle The right ventricle is normal size. The right ventricular systolic function is normal. Atria Left atrium is severely dilated. No thrombus is visualized in the left atrium or appendage. No shunting noted with contrast bubble injection. Right atrium is at the upper limits of normal. Aortic Valve Aortic valve is trileaflet, mildly calcified leaflets Mild aortic regurgitation. See transthoracic gradients. Mild aortic stenosis Mitral Valve Heavily calcified annulus and leaflets. No rancho valve vegetation. Moderate mitral regurgitation. Mild-moderate mitral stenosis. (Peak gradient of 13mmHg; Mean 7mmHg). Tricuspid Valve The tricuspid valve is normal in structure. Moderate tricuspid regurgitation. Pulmonic Valve The pulmonary valve is normal in structure. Mild to moderate pulmonic regurgitation. Great Vessels The aortic root is normal in size. The ascending aorta is normal in size. IVC is normal in size and collapses >50% with inspiration. Pericardium There is no pericardial effusion. Critical Notification Physician Notified <Conclusion> Left ventricular systolic function is normal. There is normal LV segmental wall motion. LVEF 55%. Left atrium is severely dilated. No thrombus is visualized in the left atrium or appendage. No shunting noted with contrast bubble injection. Aortic valve is trileaflet, mildly calcified leaflets. Mild aortic [facility] [address] [place] [address] TRANSESOPHAGEAL ECHOCARDIOGRAM Name: PITER PEACE Room #: 243-P [facility] IN M.R.#: [id number] Admission: 01/24/20 Attend Phys: Chris Thompson MD Discharge: Date of : 41 Report #: [id number] regurgitation and stenosis. See transthoracic gradients. Heavily calcified annulus and leaflets. No rancho valve vegetation. Moderate mitral regurgitation. Mild-moderate mitral stenosis. (Peak gradient of 13mmHg; Mean 7mmHg). The ascending aorta is normal in size. There is no pericardial effusion. No vegetations seen <ELECTRONICALLY SIGNED> By: Galen Trujillo MD, [facility] 01/28/20900 0 0 Galen Trujillo MD, FAC /INF
--- NOTE | 2020-01-28 09:14 | NUR ---
If unable to extubate, recommend start vital HP at 40ml/hr as goal. Has been npo start of day 4
--- NOTE | 2020-01-28 09:17 | EKG ---
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
[2020-01-28 11:34] LABS: LARGE PLATELETS FEW; PLATELET COUNT 101 thou/uL (150-400)
[2020-01-28 11:35] LABS: ANISOCYTOSIS 1+
--- NOTE | 2020-01-28 16:06 | PATH ---
[facility] [address] [place] [address] PATHOLOGY RPT PROCEDURE Name: PITER HODGE Room #: 243-P ADM IN M.R.#: [id number] Admission: 01/24/20 Date of : 41 Discharge: Report #: [id number] Path Case #: [id number] [facility] Accession Number: [id number] . 01 Material submitted: . vertebral column - L4 LUMBAR DECOMPRESSION . 01 Clinician provided ICD-10: A41.9 G06.2 . 01 Clinical history: . MICRO LUMBAR DISCETOMY RESPIRATORY VENTILATION, LESS THAN 24 CONSECUTIVE . 02 Diagnosis: Disc, L4 lumbar decompression: - Fragments of bone and cartilage with marked acute inflammation. - Fragments of reactive skeletal muscle as well as adipose tissue. - Trilineage hematopoiesis identified within marrow space. (IUV/db; 01/28/2020) LBQ 01/28/2020 1140 Local . 02 Electronically signed: . Lia Ford MD, Pathologist NPI- [id number] . 01 Gross description: . The specimen is received in formalin, labeled "Piter Hodge, L4 lumbar decompression". Received are multiple segments of bone admixed with pale de luna gritty tissue measuring 4.8 x 3.9 x 1.5 cm in aggregate dimensions. The specimen is submitted representatively in cassette A1, following decalcification. (CAA; 01/27/2020) QA/QA 01/27/2020 1331 Local . 02 Pathologist provided ICD-10: M89.8X8 . 02 CPT . 731506, [id number] Specimen Comment: A courtesy copy of this report has been sent to [phone], [phone] Specimen Comment: [phone] Specimen Comment: Report sent to DR BROWNING / DR DOW Performed at: 01 [address] [place] [address] PATHOLOGY RPT PROCEDURE Name: PITER HODGE Room #: 243-P [facility] IN [facility]#: [id number] Admission: 01/24/20 Date of : 41 Discharge: Report #: [id number] Path Case #: [id number] [address] [facility] [address], [place], [place] [id number] MD Aguilar Otero MD Phone: [phone] Performed at: [address] [facility] [place] [id number] MD Lia Ford MD Phone: [phone]
--- NOTE | 2020-01-28 18:08 | NUR ---
ASSUMED CARE AT 0700, ASSESSMENT AND VITAL SIGNS COMPLETED PER ICU PROTOCOL. DR. PIERCE WAS PAGED AND NOTIFIED OF CRITICAL K LEVEL OF 2.9. DR. DURAN DID A BEDSIDE KINZA THIS MORNING. DR. MONET ROUNDED THIS AM. PLAN OF CARE DISCUSSED WILL 'S THEY ROUNDED.
--- NOTE | 2020-01-28 18:32 | NUR ---
DR. REESE PAGED AND NOTIFIED THAT HE NEEDS TO SIGN CONSENT FOR KINZA PERFORMED THIS MORNING. DR. REESE VOICED HE WOULD RETURN DURING ROUNDS TO SIGN IT. DR. REESE HAS NOT RETURNED TO SIGN CONSENT AT THIS TIME.
[2020-01-29] VITALS (41 sets, daily range): BP systolic 106–174; BP diastolic 38–88
[2020-01-29 00:02] LABS: MAGNESIUM 2.4 mg/dL (1.8-2.4); POTASSIUM 3.5 mmol/L (3.5-5.1)
[2020-01-29 04:42] LABS: BE(vivo) 4.8 mmol/L (-2 to +3); HCO3 28.5 mmol/L (22.0-26.0); PCO2 39.1 mmHg (35.0-45.0); PO2 125.4 mmHg (80.0-100.0); pH 7.481 (7.360-7.450); sO2 98.7 % (92.0-98.0)
[2020-01-29 05:01] LABS: MCH 31.5 pg (26.0-34.0); MCHC 32.2 g/dL (28.0-37.0); MCV 97.8 fL (80.0-100.0); RBC 3.17 mil/uL (4.20-5.00); RDW 14.8 % (10.5-14.5); WBC 12.4 thou/uL (4.0-11.0)
[2020-01-29 05:13] LABS: CALCIUM 8.2 mg/dL (8.5-10.1); CREATININE 1.8 mg/dL (0.6-1.0); MAGNESIUM 2.4 mg/dL (1.8-2.4); POTASSIUM 3.4 mmol/L (3.5-5.1)
--- NOTE | 2020-01-29 07:04 | NUR ---
Precedex on hold since 529 it was infusing at 0.5mcg, pt bradycardic, HR down to 42 and maintained for a few minutes. Pt unarousable even with sedation off, not following commands, current vitals 139/35, HR 45, RR 15, 100 % on the vent. Report given to oncoming RN.
--- NOTE | 2020-01-29 09:18 | NUR ---
ON-going assessment: CM REACHED OUT TO PATIENTS DAUGHTER JUDITH TO GATHER MORE INFORMATION. PT LIVES IN AN APT ALONE. DAUGHTER REPORTS IT IS A SENIOR APT FOR AGES 65 AND OLDER. DAUGHTER REPORTS THAT PATIENT IS NORMALLY VERY INDEPENDENT. PT USES A CANE FOR AMBULATION BUT ALSO HAS A WALKER AT HOME SHE WAS GIVEN IN THE PAST. DAUGHTER REPORTS SHE HAS NOT SEEN THE WALKER SO UNSURE SHE STILL HAS IT. PT HAS BEEN TO A SNF IN THE PAST BUT DAUGHTER CANNOT RECALL WHICH ONE. PT HAS ALSO HAD [facility] IN THE PAST. PT HAS A SHOWER CHAIR AT HOME AND IS NORMALLY INDEPENDENT WITH ADLS. DAUGHTER REPORTS THAT SHE OR PATIENTS SON MORTEZA USUALLY TAKE HER TO THE STORE SHE NO LONGER DRIVES. PT REMAINS ON THE VENT BUT GOING TO ATTEMPT WEANING TRIALS TODAY. CM WILL CONTINUE TO FOLLOW TO ASSIST NEEDED.
--- NOTE | 2020-01-29 10:36 | NUR ---
WOUND CARE F/U; THE PATIENTS AREA TO HER BILATERAL BUTTOCKS REMAINS HEALED WITH ONLY SOME MINOR SKIN COLOR CHANGES THAT WILL DIMINISH OVER TIME. THE PATIENTS RN STATES THERE ARE NO OTHER NEEDS. RECOPMMEDATIONS; WOUND CARE WILL CONTINUE FOLLOWING THIS PATIENT THRU THIS HOSPITALIZATION. RN PRESENT
--- NOTE | 2020-01-29 18:15 | NUR ---
PT HR WENT FROM SR 70-80'S TO SVT 150-160'S. SUCTIONING ATTEMPTED TO VAGEL WITH NO RESPONSE. IVP PAIN MEDICATION GIVEN WITH NO RESPONSE. DR. SAM PAGED. WHEN HE CALLED BACK @ 9800 ORDERS FOR ADENOSINE 6MG IVP X1. REPEAT WITH 12MG IF NO EFFECT. PT CONVERTED BACK TO SR IN THE 70'S WITH PVC'S AFTER ADMINISTRATION OF 6MG IVP.
--- NOTE | 2020-01-29 19:12 | NUR ---
PT PROGRESSING TOWARDS GOALS. CPAP TRIAL TODAY FOR 2HRS. PT RR 30'S VOLUMES MID 300'S. PT PLACED BACK ON VENT. TF STARTED. DAUGHTER AT BEDSIDE MOST OF THE DAY. TALKED WITH SURGERY REGARDING MOMS CONDITION. REPLACEMENT OF K+ THROUGHOUT THE SHIFT. CRITICAL @ 2.9 @ 1820. GIVE 40 MEQ IV AND 40 MEQ PO ORDERS.
[2020-01-30] VITALS (51 sets, daily range): BP systolic 111–182; BP diastolic 43–93
[2020-01-30 01:22] LABS: MAGNESIUM 1.9 mg/dL (1.8-2.4); POTASSIUM 3.7 mmol/L (3.5-5.1)
[2020-01-30 03:17] LABS: HEMATOCRIT 36.2 % (37.0-47.0); HEMOGLOBIN 11.5 gm/dL (12.0-15.0); MCH 31.3 pg (26.0-34.0); MCHC 31.7 g/dL (28.0-37.0); MCV 98.6 fL (80.0-100.0); RBC 3.67 mil/uL (4.20-5.00); RDW 14.6 % (10.5-14.5); WBC 15.8 thou/uL (4.0-11.0)
--- NOTE | 2020-01-30 03:31 | NUR ---
PT WENT INTO SVT HR IN UPPER 150'S, PT HAD BEEN IN NSR SINCE THE PREVIOUS EPISODE OF SVT DURING THE DAY. SPOKE TO DR CUMMINS AND HE ORDERED 6MG ADENOSINE THEN SECOND DOSE 12MG, IF THE FIRST DOSE IS NOT EFFECTIVE. PT WAS GIVEN 6MG ADENOSINE AND QUICKLY CONVERTED TO NSR. PT STILL NOT FOLLOWING COMMANDS, SHE MOVES THE RIGHT ARM AND LEG, NO MOVEMENTS ON THE LEFT. PUPILS ARE EQUAL AND REACT TO LIGHT, HOWEVER PT IS GAZING TOWARDS THE RIGHT, BOTH PUPILS ARE NOT CENTERED. PT CONTINUE TO BE OFF SEDATION AND ONLY RESPONDS TO DEEP PAIN. SPOKE TO TIMMY MAK ABOUT THESE FINDINGS, AND SHE SAID WILL REVIEW PT 'S CHART. WILL CONTINUE TO MONITOR.
[2020-01-30 03:49] LABS: CALCIUM 8.6 mg/dL (8.5-10.1); CREATININE 1.7 mg/dL (0.6-1.0); POTASSIUM 3.2 mmol/L (3.5-5.1)
--- NOTE | 2020-01-30 06:58 | NUR ---
CT OF HEAD WAS DONE PER ORDERS, REPORT IS ON CHART AND NURSING REPORT GIVEN TO ON COMING RN.
--- NOTE | 2020-01-30 11:30 | NUR ---
TALKED WITH NEUROLOGY ANSWERING SERVICE REGARDING NEW CONSULT FOR MAT GAUGER.
--- NOTE | 2020-01-30 11:57 | NUR ---
SWITCHED ECHOLS CATHETER BAG DUE TO BAG LEAKING ON THE FLOOR. RED SEAL BROKE FOR NEW BAG TO BE APPLIED
--- NOTE | 2020-01-30 11:57 | NUR ---
DAUGHTER AT BEDSIDE. ASKING WHY HER MOTHER HASN'T WOKEN UP YET. INFORMED HER THAT A CT OF THE HEAD HAS BEEN DONE AND WE HAVE CONSULTED NEUROLOGY TO VIEW THAT CT AND WORK ON THE PTS CASE. DAUGHTER IS UPSET THAT THIS CT WAS NOT DONE EARLIER, DOES NOT WANT TO SEE THE QUENCHER OPERATOR FOR DR. BROWNING AGAIN, AND IS UPSET WITH ME BECAUSE I CAN NOT DISCUSS THE RESULTS OF THE CT SCAN. INFORMED HER THAT THE NEUROLOGIST WOULD BE THE BEST PERSON TO GO OVER THE RESULTS OF THE CT SCAN, I HAVE CONSULTED HIM AND HE SHOULD BE IN TODAY TO TALK WITH HER. DAUGHTER IS TEARFUL AT THE BEDSIDE STATING i know by what you are saying something is already wrong, so why can't you tell me. INFORMED HER AGAIN THAT THE NEUOLOGIST WILL BE ABLE TO DISCUSS THE RESULTS WITH HER.
--- NOTE | 2020-01-30 13:43 | NUR ---
CALLED ANSWERING SERVICE FOR NEUROLOGY AND ASKED TO REPAGE REGARDING CONSULT DUE TO DAUGHTER GETTING UPSET AND ASKING WHY IT IS TAKING THEM SO LONG TO COME SEE HER MOTHER.
--- NOTE | 2020-01-30 13:53 | NUR ---
TALKED WITH DR. CHEN ON THE PHONE, STATES HE WILL BE IN TO TALK WITH DAUGHTER WHEN HE IS FINISHED UP AT [facility].
--- NOTE | 2020-01-30 16:15 | NUR ---
DR. CHEN AT BED SIDE. PT ASSESSED. WENT OVER PTS COARSE OF STAY SINCE COMING INTO THE HOSPITAL. SUGGESTS POSSIBLE MENINGITIES, WILL TALK WITH WELL LOGGING CAPTAIN MUD ANALYSIS TO SEE IF PT NEEDS TO GO INTO ISOLATION. DR. CHEN TALKED WITH DAUGHTER JUDITH ON THE PHONE AND UPDATED HER ON HIS FINDINGS AND HIS PLAN TO DO BLOOD CULTURES, AND LUMBAR PUNCTUR, AND A MRI OF HER BRAIN. THEY HAVE A MEETING SET UP FOR TOMORROW 01/30 @ 3PM IN THE ICU.
--- NOTE | 2020-01-30 18:16 | NUR ---
PT PLACED IN DROPLET PRECAUTIONS.
--- NOTE | 2020-01-30 18:36 | NUR ---
PT NOT PROGRESSING TOWARDS GOALS. NEUROLOGY CONSULTED. DR. CHEN TALKED WITH TONY REGARDING PTS CONDITION. MORE TESTS TO BE DONE. PT STILL UNRESPONSIVE AND HAS VERY MINIMAL MOVEMENT TO THE LEFT SIDE. TEMP TODAY, TREATED WITH TYLENOL.
--- NOTE | 2020-01-30 20:58 | NUR ---
AT 2019 PT WENT INTO SVT HR 170 T0 176, CALLED DR CUMMINS AND NOTIFIED HIM, HE ORDERED ADENOSINE PRN FOR SVT. HE SAID TO GIVE 6MG FIRST, THEN 12MG, IF FIRST DOSE IS NOT EFFECTIVE. PT WAS GIVEN 6MG, AND SHE CONVERTED IMMEDIATELY TO SINUS RHYTHM, HR IN THE 90'S. WILL CONTINUE TO MONITOR PT.
--- NOTE | 2020-01-30 22:07 | NUR ---
AT 2127 PT WENT INTO SVT AGAIN, 6MG ADENOSINE WAS GIVEN PER ORDERS, AND PT CONVERTED TO SINUS RHYTHM. NOTIFIED DR CUMMINS AND HE ORDERED METOPROLOL IVP, WILL CARRY OUT ORDERS AND MONITOR PT.
[2020-01-31] VITALS (73 sets, daily range): BP systolic 106–173; BP diastolic 47–85
[2020-01-31 03:10] LABS: MAGNESIUM 1.6 mg/dL (1.8-2.4); POTASSIUM 3.1 mmol/L (3.5-5.1)
--- NOTE | 2020-01-31 03:23 | NUR ---
Around 0100 pt in SVT again, gave adenosine per orders first and second dose, with no effect. Amiodarone bolus, and gtt started per Dr Buenrostro. Pt converted to NSR with the bolus and is maintaining sinus rhythm at this time, heart rate in the 70's. Amiodarone gtt at 1mg/hr per protocol, will continue to monitor pt.
[2020-01-31 05:29] LABS: HEMATOCRIT 36.2 % (37.0-47.0); HEMOGLOBIN 11.5 gm/dL (12.0-15.0); MCH 31.4 pg (26.0-34.0); MCHC 31.9 g/dL (28.0-37.0); MCV 98.6 fL (80.0-100.0); RBC 3.67 mil/uL (4.20-5.00); RDW 15.2 % (10.5-14.5); WBC 15.6 thou/uL (4.0-11.0)
[2020-01-31 05:33] LABS: CALCIUM 7.9 mg/dL (8.5-10.1); CREATININE 1.4 mg/dL (0.6-1.0); POTASSIUM 3.3 mmol/L (3.5-5.1)
--- NOTE | 2020-01-31 11:43 | NUR ---
ASSUMED CARE AT 0700, ASSESSMENT AND VITAL SIGNS COMPLETED PER ICU PROTOCOL. PT TAKEN TO MRI THIS MORNING AND BY RN AN RT, NO COMPLICATIONS. RADIOLIGIST CALL AFTER RETURNING TO THE UNIT, INFORMED RN OF MRI RESULTS. DR. MONET AND DR. PIERCE PAGED AND NOTIFIED. DR. EDMOND PAGED, AWAITING CALL BACK AT THIS TIME. NO NEW ORDERS RECEIVED, RN WILL CONTINUE TO MONITOR.
[2020-02-01] VITALS (42 sets, daily range): BP systolic 97–172; BP diastolic 34–72
[2020-02-01 06:14] LABS: HEMATOCRIT 35.1 % (37.0-47.0); MCH 31.1 pg (26.0-34.0); MCHC 31.5 g/dL (28.0-37.0); MCV 98.9 fL (80.0-100.0); RBC 3.54 mil/uL (4.20-5.00)
[2020-02-01 06:23] LABS: CALCIUM 8.5 mg/dL (8.5-10.1); CREATININE 1.1 mg/dL (0.6-1.0)
[2020-02-01 06:26] LABS: POTASSIUM 2.9 mmol/L (3.5-5.1)
--- NOTE | 2020-02-01 07:58 | NUR ---
Assummed care from Santos MANUEL at 0700. Lumbar drain removed by Dr. Nunez's REGULATORY AND COMPLIANCE TECHNICIAN at bedside at 0750. Patient repositoned. D5W infusing for elevated sodium of 151 and KCl bolus infusing for serum potassium of 2.9.
[2020-02-01 08:24] LABS: ALBUMIN 2.1 g/dL (3.4-5.0); TOTAL BILIRUBIN 1.2 mg/dL (0.2-1.0); TOTAL PROTEIN 6.3 g/dL (6.4-8.2)
--- NOTE | 2020-02-01 11:16 | NUR ---
WOUND CARE F/U ASSESSED BUTTOCKS/SACRAL AREA, SCRATCH STEWARD, BILAT HIPS, R LEG W/ FLOOR HELPER UNA, BUTTOCKS AREA HEALING, SLIGHTLY PINK, NO OPEN AREAS, RECTAL TUBE REMAINS IN PLACE, SCRATCH STEWARD DRY, HEALING RECOMMENDATIONS; CONT CURRENT POC, BARRIER CREAM TO SACRAL/BUTTOCKS AREA BID AND PRN, SCRATCH STEWARD OPEN TO AIR, NO DRSG NEEDED FLOOR HELPER AWARE
--- NOTE | 2020-02-01 15:19 | NUR ---
ON-GOING ASSESSMENT: MRI shows multiple areas of infarct. Poor prognosis. LP today to r/o meningitis. cm will continue to follow to assist as needed.
--- NOTE | 2020-02-01 15:59 | NUR ---
Spoke with Dr. Pleitez regarding lumbar puncture, as there was no order for the procedure just cultures, by Dr Sue. He stated that the family is deceiding if to proceed wtih comfort care and would let infectious disease deceide if and when to proceed with the lumbar puncture.
--- NOTE | 2020-02-01 19:00 | NUR ---
PATIENT NOT PROGRESSING TOWARDS OUTCOME GOALS. REMOVED FROM ISOLATION BY DR KUMAR. PATIENT STATUS UNCHANGED WILL CONTINUE TO MONITOR.
--- NOTE | 2020-02-01 21:13 | NUR ---
Talked to Laure Hodge (daughter and pt printing sales representative) @ [address] Prakash is consulted and would meet her tommorrow to discuss comfort care @ around 10am 02/02/20.
[2020-02-02] VITALS (24 sets, daily range): BP systolic 96–145; BP diastolic 38–55
[2020-02-02 05:50] LABS: HEMATOCRIT 33.5 % (37.0-47.0); HEMOGLOBIN 10.5 gm/dL (12.0-15.0); MCH 31.1 pg (26.0-34.0); MCHC 31.2 g/dL (28.0-37.0); MCV 99.6 fL (80.0-100.0); RBC 3.36 mil/uL (4.20-5.00); RDW 14.6 % (10.5-14.5); WBC 18.7 thou/uL (4.0-11.0)
[2020-02-02 06:21] LABS: CALCIUM 7.9 mg/dL (8.5-10.1); CREATININE 1.1 mg/dL (0.6-1.0); POTASSIUM 3.4 mmol/L (3.5-5.1)
--- NOTE | 2020-02-02 09:48 | NUR ---
noted in chart dr iverson consult for today and will reach out to pt family/daughter. will cont following as needed for dc needs.
--- NOTE | 2020-02-02 13:21 | NUR ---
ON-GOING ASSESSMENT: MICHAEL SPOKE WITH BEDSIDE RN WHO REPORTS PATIENTS DAUGHTER IS WANTING SOME INFORMATION ON HOSPICE HOUSE/HOME WITH HOSPICE. MICHAEL REACHED OUT TO PATIENTS DAUGHTER JUDITH TO DISCUSS. DAUGHTER REPORTS NO PREFERENCE OF HOSPICE AGENCY. SHE REPORTS THAT SHE AND HER BROTHER ARE INTERESTED IN MORE INFORMATION ON HOSPICE BUT UNSURE IF THEY WANT HOSPICE HOUSE OR HOME WITH HOSPICE AND WANTING MORE INFORMATION. CRISTELA CONCERN IS THAT ONLY A CERTAIN AMOUNT OF PEOPLE WILL BE ABLE TO VISIT IF THEY CHOSE [facility] AND WANTING TO CLARIFY VISITOR POLICY. MICHAEL REACHED OUT TO LIASON EMILY AT [facility] WHO REPORTS 4 VISITORS CAN VISIT AT [facility] BUT HAS TO BE THE SAME VISITORS THROUGHOUT THE STAY BUT THEY DO OFFER PATIO VISITS WHERE THERE CAN BE AN UNLIMITED NUMBER OF VISITORS. SHE STATES FOR INSIDE THE 4 VISITORS ARE ALLOWED TO STAY WITH PATIENT 24/12 IF THEY WISH. SHE REPORTS THAT REFERRAL CAN BE FAXED AND SOMEONE CAN COME OUT AND TALK WITH PATIENTS DAUGHTER. CM FAXED REFERRAL AND WAITING TO HEAR BACK FROM [facility] AT THIS TIME. CM LEFT VM WITH PATIENTS DAUGHTER TO NOTIFY HER. MICHAEL WILL CONTINUE TO FOLLOW.
--- NOTE | 2020-02-02 15:11 | NUR ---
ON-GOING ASSESSMENT: CM REVIEWED CHART And SPOKE AGAIN WITH JUDITH PATIENTS DAUGHTER AND SHE REPORTS AFTER DISCUSSING WITH HER BROTHER THEY THINK [facility] IS THE BEST OPTION. CM NOTIFIED SUNDEEP AT [facility] WHO REPORTS SHE WILL ATTEMPT TO HAVE SOMEONE COME EVAL PATIENT FOR THE [facility] THIS EVENING. SHE REPORTS THERE IS CURRENTLY A WAITING LIST AT THE [facility] BUT POSSIBLY COULD GET PT THERE PRETTY QUICKLY. SHE REPORTS 1-2 PEOPLE AHEAD OF HER BUT COULD POSSIBLY MOVE PATIENT TO [facility] OFF [address] SOON. CM NOTIFIED PATIENTS DAUGHTER. PTS DAUGHTER JUDITH REQUEST TO BE CONTACTED AFTER [facility] DOES THERE EVAL AND TO NOTIFY HER IS SHE QUALIFIES FOR THE HOUSE. CM NOTIFIED SUNDEEP WHO REPORTS THEY WILL CONTACT PATIENTS DAUGHTER ONCE THE EVAL IS COMPLETED. CM NOTIFIED FINISHING SUPERVISOR TO COMPLETE [employer] FORM IN CASE A BED BECOMES AVAILABLE FOR PATIENT AT [facility] AND PT CAN BE TRANSFERRED. CONTACT FOR SUNDEEP AT [facility] IS [phone]. CM ALSO NOTIFIED ATTENDING THAT PATIENT WILL BE EVALUATING FOR [facility] AND PUT ON THE WAITING LIST. CM UPDATED BEDSIDE RN. CM WILL CONTINUE TO FOLLOW TO ASSIST NEEDED.
--- NOTE | 2020-02-02 18:28 | NUR ---
PATIENT EXTUBATED AT 1150 TO 2L N/C SPO2 100%; RR 20s -30s; HR 60s, BP 120s-130s/60s. PRN FENTANYL GIVEN FOR COMFORT/PAIN. DAUGHTER AT THE BEDSIDE, ASKED ABOUT HOSPICE CARE - SW IN TOUCH WITH DAUGHTER ABOUT HOSPICE CARE OPTIONS. AT 1800 RN FROM [facility] AT THE BEDSIDE TO DO EVAL. WILL CONTINUE TO MONITOR AND FOLLOW POC. NIGHT RN TO UPDATE DAUGHTER ON HOSPICE EVAL RECOMMENDATIONS.
[2020-02-03] VITALS (13 sets, daily range): BP systolic 89–125; BP diastolic 33–46
--- NOTE | 2020-02-03 05:06 | NUR ---
Assumed pt care at 1900. Pt is unresponsive but does open eyes. Does not respond to any verbal commands. Comfort care in place. Assessment completed and documented. Cervantes, rectal tube in place. Scheduled meds administered to pt. Pt is to be transferred to hospice today. Pt is stable through the night. Spoke to daughter for updates. Continue to monitor pt. No needs at this time
--- NOTE | 2020-02-03 09:24 | NUR ---
DRU Mancia/ HOSPICE CONTACTED THIS CM TO INFORM THEY CAN ADMIT PT "ANYTIME AFTER 11." DRU STATED SHE DOES NOT NEED ANY CHART COPY/ORDERS FAXED. "I HAVE EVERYTHING I NEED." CM TO CONTACT DRU Mancia/TRANSPORTATION TIME. [phone]. MICHAEL NOTIFIED PT'S RN, KEUYR. KEYUR STATED SHE WILL NEED TO GET OOH DNR SIGNED BY AND VERBAL CONSENT FROM PT DTR. KEYUR WILL CONTACT WHEN SHE IS READY TO HAVE TRANSPORTATION SET UP. CM NOTIFIED PT'S DTRJUDITH OF THIS, JUDITH AGREEABLE TO PLAN. [phone] - NUMBER TO EDWIN REPORT.
--- NOTE | 2020-02-03 11:19 | NUR ---
RECEIVED AUTH FROM THAT HOSPICE AVAILABLE TO TAKE PATIENT AFTER 11AM. FAXED TRANSFER SHEET TO [facility] NON EMERGENT TRANSFER FACILITY. PROVIDER AWARE OF PT READINESS TO DISCHARGE. SPOKE WITH DAUGHTER AND RECEIVED PHONE CONSENT FOR OUTSIDE HOSPITAL DNR, SIGNED BY PROVIDER. ATTEMPTED TO CALL [facility] FOR REPORT, FOUNDATION DRILL OPERATOR HELPER UNAVAILABLE, LEFT MESSAGE FOR RETURN CALL. WILL UPDATE FAMILY WHEN PT READY FOR DISCHARGE TO [facility]. PT REMAINS UNRESPONSIVE, OPENS EYS SPONTANEOUSLY, DOES NOT FOLLOW COMMANDS OR MAKE PURPOSEFUL MOVEMENTS. NO APPARENT PAIN NOTED ON ASSESSMENT, NO DISTRESS NOTED. ECHOLS & FMS BOTH PATENT & SECURED IN PLACE. IV IN PLACE. [facility] REQUESTS FOR IV LINES, ECHOLS, & FMS TO REMAIN IN PLACE FOR PATIENT COMFORT. FALL PRECAUTIONS IN PLACE.
== END 2020-02-03 12:13 | disposition hospice, inpatient (51) | DRG 870 ==
LOC: ER 09:31 → ICU 18:49 → EROBS 18:49 → ICU 19:48
PROVIDERS: Emergency Medicine; Hospitalist; Internal Medicine; Internal Medicine Pulmonary Disease; Pediatrics; Specialist; ADMIT Internal Medicine; ATTEND Internal Medicine
PROC: 0BH17EZ Insertion of Endotracheal Airway into Trachea, Via Natural or Artificial Opening (ICD-10-PCS; principal; 2020-01-24)
PROC: B24BZZ4 Ultrasonography of Heart with Aorta, Transesophageal (ICD-10-PCS; principal; 2020-01-24)
PROC: 5A1955Z Respiratory Ventilation, Greater than 96 Consecutive Hours (ICD-10-PCS; principal; 2020-01-24)
PROC: 009U3ZZ Drainage of Spinal Canal, Percutaneous Approach (ICD-10-PCS; 2020-01-26)
PROC: 02HV33Z Insertion of Infusion Device into Superior Vena Cava, Percutaneous Approach (ICD-10-PCS; 2020-01-26)
DX: A41.2 Sepsis due to unspecified staphylococcus (principal); R65.21 Severe sepsis with septic shock; J96.01 Acute respiratory failure with hypoxia; N17.0 Acute kidney failure with tubular necrosis; G06.1 Intraspinal abscess and granuloma; G92 Toxic encephalopathy; K72.00 Acute and subacute hepatic failure without coma; I63.9 Cerebral infarction, unspecified; E87.0 Hyperosmolality and hypernatremia; I47.1 Supraventricular tachycardia; I50.32 Chronic diastolic (congestive) heart failure; I13.0 Hypertensive heart and chronic kidney disease with heart failure and stage 1 through stage 4 chronic kidney disease, or unspecified chronic kidney disease; I25.10 Atherosclerotic heart disease of native coronary artery without angina pectoris; Z66 Do not resuscitate; E11.65 Type 2 diabetes mellitus with hyperglycemia; E87.6 Hypokalemia; E11.22 Type 2 diabetes mellitus with diabetic chronic kidney disease; K21.9 Gastro-esophageal reflux disease without esophagitis; N18.3 Chronic kidney disease, stage 3 (moderate); G89.29 Other chronic pain; M51.24 Other intervertebral disc displacement, thoracic region; M19.90 Unspecified osteoarthritis, unspecified site; I08.1 Rheumatic disorders of both mitral and tricuspid valves; E78.5 Hyperlipidemia, unspecified; Z51.5 Encounter for palliative care; M54.9 Dorsalgia, unspecified; Z96.653 Presence of artificial knee joint, bilateral; Z96.611 Presence of right artificial shoulder joint; Z20.828 Contact with and (suspected) exposure to other viral communicable diseases; Z85.3 Personal history of malignant neoplasm of breast; Z90.710 Acquired absence of both cervix and uterus; Z86.73 Personal history of transient ischemic attack (TIA), and cerebral infarction without residual deficits; Z90.49 Acquired absence of other specified parts of digestive tract; Z98.1 Arthrodesis status; Z79.84 Long term (current) use of oral hypoglycemic drugs; Z79.899 Other long term (current) drug therapy; Z79.82 Long term (current) use of aspirin; Z88.5 Allergy status to narcotic agent; Z88.8 Allergy status to other drugs, medicaments and biological substances; Z88.1 Allergy status to other antibiotic agents; Z91.040 Latex allergy status; Z90.11 Acquired absence of right breast and nipple; Z87.11 Personal history of peptic ulcer disease
CPT/HCPCS: 10078; 10203; 50101; 50402; 50503; 50515; 50704; 50850; 51412; 51687; 51779; 53210; 54118; 55106; 56525; 56526; 56528; 56532; 56805; 62110; 62900